=== PATIENT | female | born 1950 | race Caucasian/White ===

== ENCOUNTER 2021-06-29 12:38 | Outpatient (CLI) | payer OTHER ==
[~2021-06-29 12:38] MED LIST: NO HOME MEDS
== END 2021-06-29 23:59 | disposition home or self-care (01) ==
LOC: CARD DIAG 12:38
PROVIDERS: ATTEND Internal Medicine
DX: L03.115 Cellulitis of right lower limb (principal)
CPT/HCPCS: 93308